=== PATIENT | female | born 1925 | race Caucasian/White ===

== ENCOUNTER 2017-02-04 09:43 | Outpatient (CLI) | payer OTHER ==
--- NOTE | 2017-02-04 10:58 | DIAGNOSTIC IMAGING REPORT ---
PROCEDURE: CT ABD/PELVIS WITH CONTRAST CLINICAL INDICATION: RETROPERITONEAL TUMOR, surveillance. TECHNIQUE: 125 ml of Isovue 300 were injected intravenously and axial images were obtained of the entire abdomen and pelvis with sagittal and coronal reformations. COMPARISON: CT abdomen/pelvis 08/10/2016 and 03/17/2016. FINDINGS: ABDOMEN: Interval progression of 6.6 x 5.5 x 4.1 cm (previously 5.2 x 3.9 x 3.4 cm) right retroperitoneal adenopathy with into displacement and compression of the IVC. Mass now demonstrates multi loculated cystic component which has also progressed. Liver, pancreas, spleen, and adrenal glands are normal. Stable small bilateral renal cysts. Moderate atherosclerosis of the aorta with scattered diverticula of the transverse colon with mild diverticulosis of the descending colon. Stable 8 mm calcified splenic artery aneurysm. PELVIS: Appendix not well visualized. Moderate severe sigmoid diverticulosis. 1.5 cm fat-containing umbilical hernia. Uterus, adnexa and bladder are normal. No free fluid or inflammatory changes. Transitional L5. Grade 1 L4-5 anterolisthesis. IMPRESSION: 1. Significant progression of 6.6 x 5.5 x 4.1 cm right retroperitoneal mass (previously 5.2 x 3.9 x 3.4 cm) and increasing multilocular cystic changes. Differential diagnosis includes lymphocele, lymphangioma, nerve sheath tumor or less likely paraganglioma and sarcoma 2. Diverticulosis 3. 8 mm calcified splenic artery aneurysm, stable All CT scans at this facility use dose modulation, iterative reconstruction, and/or weight-based dosing when appropriate to reduce radiation dose to as low as reasonably achievable.
== END 2017-02-04 23:00 | disposition home or self-care (01) ==
LOC: CT SRH 09:43
DX: R19.09 Other intra-abdominal and pelvic swelling, mass and lump (principal); K57.90 Diverticulosis of intestine, part unspecified, without perforation or abscess without bleeding; I72.8 Aneurysm of other specified arteries